=== PATIENT | male | born 1960 | race Caucasian/White ===

== ENCOUNTER 2016-08-20 13:05 | Day surgery (SDC) | payer OTHER ==
[~2016-08-20 13:05] MED LIST: CHANTIX1 EACH PO; FLOMAX0.4 M1 PO; HYDROCODON-ACE1 EA17 PO; L-LYSINE PO; MULTI VITAMIN1 EAC2 PO; PROBIOTIC1 EA10 PO
== END 2016-08-20 19:40 ==
LOC: SRG 13:05 → SHSB 13:12 → ORE 15:28 → PACU 17:13 → SHSB 17:30
PROC: 0T768DZ Dilation of Right Ureter with Intraluminal Device, Via Natural or Artificial Opening Endoscopic (ICD-10-PCS; principal; 2016-08-20)
PROC: BT1FYZZ Fluoroscopy of Left Kidney, Ureter and Bladder using Other Contrast (ICD-10-PCS; 2016-08-20)
PROC: 0TC78ZZ Extirpation of Matter from Left Ureter, Via Natural or Artificial Opening Endoscopic (ICD-10-PCS; 2016-08-20)
PROC: 0TF3XZZ Fragmentation in Right Kidney Pelvis, External Approach (ICD-10-PCS; 2016-08-20)
DX: N20.0 Calculus of kidney (principal); N20.1 Calculus of ureter; Z79.899 Other long term (current) drug therapy; Z98.890 Other specified postprocedural states
CPT/HCPCS: C2617; J0690; Q9967